=== PATIENT | female | born 1955 | race Caucasian/White ===

== ENCOUNTER 2017-08-24 00:03 | Inpatient (IN) | payer OTHER ==
[~2017-08-24] VITALS: Ht 162.6 cm; Wt 88.0 kg
[~2017-08-24 00:03] MED LIST: LAC PO; MAC100 PO
[2017-08-24 00:44] LABS: PLATELET COUNT 385 x10^3mcL (130-400); RED CELL DISTRIBUTION WIDTH 14.5 % (11.5-14.5)
[2017-08-24 00:53] LABS: CALCIUM 10.1 mg/dL (8.5-10.1); CARBON DIOXIDE 28.2 mmol/L (21-32); CREATININE SERUM 1.5 mg/dL (0.6-1.0); POTASSIUM SERUM 4.4 mmol/L (3.5-5.1)
[2017-08-24 00:57] LABS: ALBUMIN 3.5 g/dL (3.4-5.0); BILIRUBIN TOTAL 0.5 mg/dL (0.20-1.00); PHOSPHOROUS 4.6 mg/dL (2.5-4.9); TOTAL PROTEIN, SERUM 8.1 g/dL (6.4-8.2)
[2017-08-24 01:04] LABS: BAND NEUTROPHIL 5 % (0-10); METAMYELOCTE 2 % (0-2); MONOCYTE 4 % (0-7); SEGMENTED NEUTROPHILS 83 % (37-75)
[2017-08-24 01:06] LABS: PLATELET MORPHOLOGY FEW LARGE PLATELETS; rbc morphology (normal/abnorm) NORMAL (NORMAL)
[2017-08-24] MEDS ORDERED: PAXIL10 MG PO (02:44)
[2017-08-24] MEDS ORDERED: OXYCODONE HYDROC5 M2 (02:44)
[2017-08-24] MEDS ORDERED: GABAPENTIN100 M2 PO (02:45)
[2017-08-24] MEDS ORDERED: SYN2 (02:45)
[2017-08-24] MEDS ORDERED: ZYPREXA5 M1 (02:48)
[2017-08-24 03:52] LABS: UA SPECIFIC GRAVITY >=1.030 (1.005-1.035); microscopic required? YES; urine erythrocyte 2+ (NEGATIVE)
[2017-08-24 04:01] LABS: AMPHETAMINE QUAL UR NONE DETECTED (NEG <=1000)
[2017-08-24 04:28] LABS: MAGNESIUM 2.3 mg/dL (1.8-2.4)
[2017-08-24 04:30] LABS: CHOLESTEROL/HDL RATIO 6.5
[2017-08-24 04:33] LABS: T3 TOTAL 0.8 ng/mL
[2017-08-24 04:40] VITALS: BP 146/55
[2017-08-24 04:40] LABS: FREE T4 0.86 ng/dL (0.76-1.46); FREE THYROXINE INDEX 1.8 ug/dL (1.4-4.5); T4(THYROXINE) 4.8 ug/dL (4.7-13.3)
[2017-08-24 05:10] VITALS: BP 142/58
[2017-08-24 09:53] VITALS: BP 134/100
[2017-08-24] MEDS ORDERED: OXYCONTIN PO (13:13)
[2017-08-24] MEDS ORDERED: CLONAZEPAM2 MG PO (13:19)
[2017-08-24] MEDS ORDERED: MIRTAZAPINE30 M2 PO (13:33)
[2017-08-24] MEDS ORDERED: PAROXETINE HCL40 M1 PO (13:34)
[2017-08-24] MEDS ORDERED: SEROQUEL300 MG PO (13:36)
[2017-08-24] MEDS ORDERED: XARELTO10 M1 PO (13:37)
[2017-08-24] MEDS ORDERED: SIMVASTATIN20 M1 PO (13:37)
[2017-08-24 14:29] VITALS: BP 123/80; BP 132/98
[2017-08-24 21:51] VITALS: BP 147/78
[2017-08-25 06:01] VITALS: BP 128/88
[2017-08-25 09:34] VITALS: BP 127/78
[2017-08-25 10:24] LABS: BASOPHIL % 0.5 % (0-2); PLATELET COUNT 333 x10^3mcL (130-400); RED CELL DISTRIBUTION WIDTH 14.4 % (11.5-14.5)
[2017-08-25 10:34] LABS: CALCIUM 7.9 mg/dL (8.5-10.1); CARBON DIOXIDE 28.2 mmol/L (21-32); CREATININE SERUM 1.1 mg/dL (0.6-1.0); POTASSIUM SERUM 3.5 mmol/L (3.5-5.1)
[2017-08-25 17:04] VITALS: BP 126/73
[2017-08-25 21:43] VITALS: BP 136/70
[2017-08-26 05:55] VITALS: BP 118/68
[2017-08-26 07:28] LABS: BASOPHIL % 1.9 % (0-2); PLATELET COUNT 302 x10^3mcL (130-400)
[2017-08-26 07:47] LABS: CALCIUM 7.9 mg/dL (8.5-10.1); CHLORIDE SERUM 110 mmol/L (98-107); CREATININE SERUM 0.9 mg/dL (0.6-1.0); GFR1 > 60 mL/min; GLUCOSE SERUM 86 mg/dL (74-106); PHOSPHOROUS 3.8 mg/dL (2.5-4.9); POTASSIUM SERUM 3.6 mmol/L (3.5-5.1); SODIUM SERUM 144 mmol/L (136-145)
[2017-08-26 08:00] LABS: RED CELL DISTRIBUTION WIDTH 14.6 % (11.5-14.5)
[2017-08-26 08:53] VITALS: BP 134/65
[2017-08-26] MEDS ORDERED: STOOL SOFTENER240 M2 PO (10:32)
[2017-08-26] MEDS ORDERED: LINZESS145 MC1 PO (10:48)
[2017-08-26 10:49] VITALS: BP 134/65
== END 2017-08-26 12:53 | disposition home or self-care (01) | DRG 393 ==
LOC: ED 00:03 → MU 03:05 → DU 03:05 → MU 08-25 09:57
PROVIDERS: Emergency Medicine; Internal Medicine; ADMIT Family Medicine
PROC: 0DBM8ZX Excision of Descending Colon, Via Natural or Artificial Opening Endoscopic, Diagnostic (ICD-10-PCS; principal; 2017-08-25 08:30)
DX: K55.9 Vascular disorder of intestine, unspecified (principal); G93.41 Metabolic encephalopathy; N17.0 Acute kidney failure with tubular necrosis; N39.0 Urinary tract infection, site not specified; J81.1 Chronic pulmonary edema; Q43.8 Other specified congenital malformations of intestine; K92.1 Melena; K56.41 Fecal impaction; R31.9 Hematuria, unspecified; G89.29 Other chronic pain; R80.9 Proteinuria, unspecified; K64.4 Residual hemorrhoidal skin tags; D50.0 Iron deficiency anemia secondary to blood loss (chronic); F32.9 Major depressive disorder, single episode, unspecified; G47.33 Obstructive sleep apnea (adult) (pediatric); E78.5 Hyperlipidemia, unspecified; Z68.33 Body mass index [BMI] 33.0-33.9, adult; Z86.14 Personal history of Methicillin resistant Staphylococcus aureus infection; T40.2X5A Adverse effect of other opioids, initial encounter; Y92.018 Other place in single-family (private) house as the place of occurrence of the external cause
CPT/HCPCS: 45378; 83880; 84439; 87046; 87046-59; J0696; J1200; J1610; J2250; J2310; J2543; J3010; J3490; J7030; J7040; Q0092